=== PATIENT | male | born 1960 | race Caucasian/White ===

== ENCOUNTER 2017-10-07 04:19 | Emergency (ER) | payer MEDICARE ==
[2017-10-07 04:31] VITALS: BP 136/96
== END 2017-10-07 04:45 | disposition left against medical advice (07) ==
LOC: ED 04:19
DX: M79.606 Pain in leg, unspecified (principal); Z53.21 Procedure and treatment not carried out due to patient leaving prior to being seen by health care provider

== ENCOUNTER 2018-03-22 20:17 | Emergency (ER) | payer OTHER, MEDICARE ==
[2018-03-22 20:36] VITALS: BP 137/98
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
[2018-03-22] MEDS ORDERED: BOOSTRIX IM ONE (22:12)
[2018-03-22] MEDS ORDERED: MOTRIN PO ONE (22:12)
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
== END 2018-03-22 22:50 | disposition home or self-care (01) ==
LOC: ED 20:17
DX: S86.912A Strain of unspecified muscle(s) and tendon(s) at lower leg level, left leg, initial encounter (principal); S80.12XA Contusion of left lower leg, initial encounter; F17.200 Nicotine dependence, unspecified, uncomplicated; F20.9 Schizophrenia, unspecified; V49.59XA Passenger injured in collision with other motor vehicles in traffic accident, initial encounter; Y93.89 Activity, other specified; Y92.89 Other specified places as the place of occurrence of the external cause; Y99.8 Other external cause status
CPT/HCPCS: 90471; 90715

== ENCOUNTER 2018-07-15 13:29 | Emergency (ER) | payer MEDICAID, MEDICARE, OTHER ==
--- NOTE | 2018-07-15 16:23 | Emergency Department Report ---
ED Abdominal Pain HPI - General Chief Complaint: Chest Pain Stated Complaint: HEAD/CHEST PAIN Time Seen by Provider: 07/15/18 16:07 Source: patient Mode of arrival: Ambulatory Limitations: No Limitations - History of Present Illness Initial Comments: Patient is a 58-year-old gentleman with a past smoker history of schizophrenia and heavy alcohol abuse who is complaining of some epigastric discomfort. He states the pain is 8 out of 10 in severity. Patient denies any radiation of his pain. Patient states pain is constant and is not exertional. Patient denies any shortness of breath nausea vomiting diarrhea cough cold congestion fevers or chills. Patient's last alcohol use was yesterday. - Related Data Previous Rx's Medication Instructions Recorded Last Taken Type Cyclobenzaprine [Flexeril] 10 mg PO QHS PRN #7 tablet 03/22/18 Unknown Rx Ibuprofen [Motrin] 600 mg PO Q8H PRN #30 tablet 03/22/18 Unknown Rx Dicyclomine [Bentyl] 10 mg PO QID #15 capsule 07/15/18 Unknown Rx Pantoprazole [Protonix TAB] 20 mg PO QDAY #30 tablet. 07/15/18 Unknown Rx traMADol [Ultram] 50 mg PO Q6HR PRN #10 tablet 07/15/18 Unknown Rx Allergies Allergy/AdvReac Type Severity Reaction Status Date / Time No Known Allergies Allergy Verified 07/15/18 13:38 ED Review of Systems ROS: Stated complaint: HEAD/CHEST PAIN Other details as noted in HPI Comment: All other systems reviewed and negative ED Past Medical Hx - Past Medical History Hx Psychiatric Treatment: Yes (schizophrenia) - Surgical History Past Surgical History?: No - Social History Smoking Status: Current Every Day Smoker Substance Use Type: Alcohol - Medications Home Medications: Home Medications Medication Instructions Recorded Confirmed Last Taken Type Cyclobenzaprine [Flexeril] 10 mg PO QHS PRN #7 tablet 03/22/18 Unknown Rx Ibuprofen [Motrin] 600 mg PO Q8H PRN #30 tablet 03/22/18 Unknown Rx Dicyclomine [Bentyl] 10 mg PO QID #15 capsule 07/15/18 Unknown Rx Pantoprazole [Protonix TAB] 20 mg PO QDAY #30 tablet. 07/15/18 Unknown Rx traMADol [Ultram] 50 mg PO Q6HR PRN #10 tablet 07/15/18 Unknown Rx ED Physical Exam - General Limitations: No Limitations General appearance: alert, in no apparent distress - Head Head exam: Present: atraumatic, normocephalic - Eye Eye exam: Present: normal appearance - ENT ENT exam: Present: mucous membranes moist - Neck Neck exam: Present: normal inspection - Respiratory Respiratory exam: Present: normal lung sounds bilaterally. Absent: respiratory distress, wheezes, rales - Cardiovascular Cardiovascular Exam: Present: regular rate, normal rhythm. Absent: systolic murmur, diastolic murmur, rubs, gallop - GI/Abdominal GI/Abdominal exam: Present: soft, tenderness (tenderness in the epigastrium), normal bowel sounds. Absent: distended, guarding, rebound - Rectal Rectal exam: Present: deferred - Extremities Exam Extremities exam: Present: normal inspection - Back Exam Back exam: Present: normal inspection - Neurological Exam Neurological exam: Present: alert, oriented X3 - Psychiatric Psychiatric exam: Present: normal affect, normal mood - Skin Skin exam: Present: warm, dry, intact, normal color. Absent: rash ED Course Vital Signs 07/15/18 13:38 Temperature 98.6 F Pulse Rate 98 H Respiratory 18 Rate Blood Pressure 121/91 O2 Sat by Pulse 97 Oximetry ED Medical Decision Making - EKG Data -: EKG Interpreted by Me EKG shows normal: sinus rhythm, axis, intervals, QRS complexes, ST-T waves Rate: normal - Medical Decision Making Patient with likely alcoholic gastritis. Patient will be given meds for symptomatic relief will be discharged home Critical care attestation.: If time is entered above; I have spent that time in minutes in the direct care of this critically ill patient, excluding procedure time. ED Disposition Clinical Impression: Alcoholic gastritis Qualifiers: Chronicity: acute Gastritis bleeding: presence of bleeding unspecified Qualified Code(s): K29.20 - Alcoholic gastritis without bleeding Disposition: DC-01 TO HOME OR SELFCARE Is pt being admited?: No Does the pt Need Aspirin: No Condition: Stable Instructions: Peptic Ulcer (ED), Gastritis (ED), Abuse of Alcohol (ED) Referrals: AFIA HEATH MD [Staff Physician] - 3-5 Days Time of Disposition: 16:23
[2018-07-15 16:48] VITALS: BP 135/91
== END 2018-07-15 16:49 | disposition home or self-care (01) ==
LOC: ED 13:29
DX: K29.20 Alcoholic gastritis without bleeding (principal); F20.9 Schizophrenia, unspecified; F17.200 Nicotine dependence, unspecified, uncomplicated
CPT/HCPCS: 93005; 93010